=== PATIENT | female | born 1980 | race Caucasian/White ===

== ENCOUNTER → 2017-01-11 | Outpatient (CLI) | payer OTHER | LOC: MAMO 11-27 08:00 | DX: N64.4 Mastodynia (principal); Z53.9 Procedure and treatment not carried out, unspecified reason | CPT/HCPCS: 76641-LT; 76641-RT; G0204 ==

== ENCOUNTER → 2021-06-04 | Outpatient (CLI) | payer OTHER | LOC: MRI 08:08 | DX: R55 Syncope and collapse (principal); R00.2 Palpitations | CPT/HCPCS: 70551 ==

== ENCOUNTER → 2021-08-25 | Outpatient (CLI) | payer OTHER | LOC: HEART 5 07-24 11:30 | DX: R00.0 Tachycardia, unspecified (principal); R42 Dizziness and giddiness; R55 Syncope and collapse | CPT/HCPCS: 93306 ==